=== PATIENT | female | born 1945 | race Caucasian/White ===

== ENCOUNTER 2017-07-04 09:46 | Emergency (ER) | payer MEDICARE, SELFPAY ==
[2017-07-04 09:48] VITALS: BP 223/99; PULSE 108; RESP 24; TEMP 36.4; O2SAT 98; BMI 31.4
--- NOTE | 2017-07-04 09:59 | RAD_ITS ---
STUDY: X-RAY CHEST REASON FOR EXAM: Female, 71 years old. Anxiety, chest pain TECHNIQUE: A single frontal view of the chest was obtained. COMPARISON: None. FINDINGS: The lungs are adequately aerated. There are no focal airspace opacities. There is no demonstrated pleural abnormality. The cardiac silhouette is normal in size. The mediastinum and hilar regions are unremarkable. Normal visualized pulmonary arteries. Normal visualized aortic arch and descending thoracic aorta. There are diffuse degenerative changes of the visualized spine. There are degenerative changes in both shoulders. There is no demonstrated abnormality of the visualized upper abdomen. RAD/Chest 1 View (Portable) IMPRESSION: No acute cardiopulmonary abnormalities. Electronically Signed: Pamela Montiel MD at 10:30 EST Tel Direct: [phone], Service support ,
--- NOTE | 2017-07-04 09:59 | EKG12_ITS ---
Test Reason : CHEST PAIN Blood Pressure : / mmHG Vent. Rate : 107 BPM Atrial Rate : 107 BPM P-R Int : 150 ms QRS Dur : 086 ms QT Int : 348 ms P-R-T Axes : 054 044 028 degrees QTc Int : 464 ms Sinus tachycardia Nonspecific ST abnormality Abnormal ECG Confirmed by RICHY CRAIN ([id number]), editor department GIOVANI WREN ([id number] on 07/08/2017 1:08:35 PM Referred By: CECI/SYDNEE Confirmed By:RICHY CRAIN
[2017-07-04 10:08] VITALS: O2SAT 98
--- NOTE | 2017-07-04 10:12 | ED.VISSUMM ---
- ER Visit Summary Date of Service: 07/04/17 Chief Complaint: I am having an panic attack for the last 3 days History of Present Illness: The patient is a 71 F a history of anxiety panic attacks. No prior cardiac history. She has never had a cardiac cath or stress test. She states that for the last 3 days she has had intermittent chest pain which she describes as heaviness. Intermittent shortness of breath. She denies any pleuritic chest pain. She denies any hemoptysis. She has never had a DVT or PE. She denies any recent travel, surgery or immobilization. No leg pain or swelling. Patient strongly feels this is her anxiety and not her heart. Physical Examination: Well-appearing older female. Her blood pressure is elevated to 23/99. Her pulse ox 90% room air no signs of hypoxia. H EENT exam is unremarkable. Neck is nontender no JVD no lymphadenopathy. Lungs clear to auscultation bilaterally. Heart regular rhythm no murmur. Rate about 100. Abdomen soft nontender. Normal bowel sounds no peritoneal signs. She is moving all 4 extremities. They are neurovascularly intact. Calves are nontender without edema or cords. Neurologically she is awake and alert. Seems anxious but is answering questions and following commands. Test Results: Normal. BMP normal. Troponin normal. EKG sinus tach rate of 107 no acute signs of ischemia. Chest x-ray normal cardiac silhouette and mediastinum read both by myself the radiologist. Emergency Department Course and Treatment: Patient undergo cardiac workup at this very well may be secondary to anxiety. She is to be given p.o. Ativan. She denies any recent exertional chest pain and rides a bike almost daily. Treatment Plan: Repeat exam at 1150 patient is doing well. Feels much better after 1 mg p.o. of Ativan. Her exam remains normal. Both she and I have no reason to believe that this pain was secondary to cardiac etiology. It seems to be secondary to anxiety. She had 3 straight days of discomfort and a normal troponin and normal EKG. She will be discharged home with a short course of Ativan as needed and follow-up with her primary care physician for further evaluation. Disposition: dc Impression: Chest pain suspect noncardiac etiology Acute anxiety This note was generated with [employer] software. It may contain incorrect words, spelling, and punctuation that were not noted in review of the chart prior to signing ED Disposition - Plan for ED Patient: Chief Complaint: Chest Pain Referrals: Vitor Ruiz MD [Primary Care Provider] -
[2017-07-04] MEDS: LORazepam 1 MG Tablet PO (10:16)
[2017-07-04 10:23] LABS: Absolute Lymphocyte Count 4.25 X10^3/ul (0.83-4.51); Absolute Neutrophil Count 5.8 X10^3/uL (2.0-7.7); Basophil# 0.03 X10^3/uL; Basophil% 0.3 % (0-1); Eosinophil# 0.09 X10^3/uL; Eosinophils% 0.8 % (0-5); Hematocrit 44.1 % (37-47); Hemoglobin 14.8 g/dl (12.0-15.0); Lymphocyte # 4.25 X10^3/ul (4.0); Lymphocyte % 37.9 % (19-41); Mean Corp Hgb Conc 33.6 g/gl (32-36); Mean Corpuscular Volume 83.4 fL (81-99); Mean Platelet Vol. 10.4 fl (6.2-12.0); Monocyte# 1.01 X10^3/uL; Neutrophil # 5.79 X10^3/uL (2.7-7.7); Neutrophil % 51.6 % (47-70); Platelet Count 298 K/mm3 (150-450); RBC Distribution Width SD 42.6 fl (35.1-43.9); Red Blood Count 5.29 M/mm3 (4.2-5.4); White Blood Count 11.2 K/mm3 (4.4-11.0)
[2017-07-04 10:27] LABS: POSITIVE COUNT NO; POSITIVE DIFFERENTIAL NO; POSITIVE MORPHOLOGY NO
[2017-07-04 10:38] LABS: Anion Gap 8 (5-15); BUN 12 mg/dL (7-18); BUN/Creat Ratio 12.7 RATIO (10-20); Calcium,Total 9.5 mg/dL (8.5-10.1); Chloride 102 mmol/L (98-107); Creatinine, Serum 0.95 mg/dL (0.55-1.02); EST Glomerular Filtration Rate 62 mL/min (>60); Est Glom Filt Rate - Afr Amer 75 mL/min (>60); Estimated Creatinine Clearance 45.58 ml/min; Glucose 100 mg/dL (74-106); Potassium 3.8 mmol/L (3.5-5.1); Sodium Level 137 mmol/L (136-145)
[2017-07-04 10:46] VITALS: BP 189/108
[2017-07-04 11:12] VITALS: BP 172/104; PULSE 102; RESP 14; O2SAT 97
--- NOTE | 2017-07-04 11:52 | ED.DEP ---
ED Disposition - Plan for ED Patient: Disposition: Home or Assisted Living Chief Complaint: Chest Pain Instructions: ED Chest Pain Atypical Unkn Cause, ED Panic Attack Prescriptions: Lorazepam [Ativan] 0.5 mg PO DAILY PRN PRN #10 tab PRN Reason: Anxiety Referrals: Vitor Ruiz MD [Primary Care Provider] - Additional Instructions: Ativan as needed for anxiety. Do not drive if using any Ativan. Call follow-up your primary care physician.
[2017-07-04 12:02] VITALS: BP 165/121; PULSE 109; RESP 16; RESP 18; O2SAT 98; O2SAT 99
== END 2017-07-04 12:05 | disposition home or self-care (01) ==
PROVIDERS: Emergency Provider Emergency Medicine; Family Provider Family Medicine; PCP Family Medicine
DX: R07.9 Chest pain, unspecified (principal); F41.9 Anxiety disorder, unspecified; Z79.899 Other long term (current) drug therapy
CPT/HCPCS: 71045; 80048; 84484; 85025; 93005; 99285; A4216